=== PATIENT | female | born 1995 | race American Indian/Alaskan Native ===

== ENCOUNTER 2018-09-26 19:24 | Emergency (ER) | payer MEDICAID ==
[2018-09-26 19:34] VITALS: BP 126/79
--- NOTE | 2018-09-26 21:41 | Emergency Department Report ---
ED ENT HPI - General Chief complaint: Dental/Oral Stated complaint: MOUTH PAIN/SWELLING Time Seen by Provider: 09/26/18 21:22 Source: patient Mode of arrival: Ambulatory Limitations: No Limitations - History of Present Illness Initial comments: Pt is a 22 yo female who presents to the ED with c/o left lower tooth pain that began a couple of weeks ago. She states she has also noticed swelling on her gum around that side. She states that on August 29 she had her upper wisdom teeth removed. She says that they couldnt remove the lower at that time due to "a nerve issue." The patient denies any N/V or fever. She denies any PMHx of allergies to medications. She has not taken anything to relieve her sx. Pt has not called her dentist. - Related Data Previous Rx's Medication Instructions Recorded Last Taken Type Acetaminophen/Codeine [Tylenol 1 tab PO Q6H PRN #10 tab 09/26/18 Unknown Rx /Codeine # 3 tab] Ibuprofen [Motrin 600 MG tab] 600 mg PO Q8H PRN #20 tablet 09/26/18 Unknown Rx Penicillin Vk [Veetids TAB] 500 mg PO QID 7 Days #56 tablet 09/26/18 Unknown Rx Allergies Allergy/AdvReac Type Severity Reaction Status Date / Time No Known Allergies Allergy Unverified 06/27/15 02:04 ED Dental HPI - General Chief complaint: Dental/Oral Stated complaint: MOUTH PAIN/SWELLING Time Seen by Provider: 09/26/18 21:22 Source: patient Mode of arrival: Ambulatory Limitations: No Limitations - Related Data Previous Rx's Medication Instructions Recorded Last Taken Type Acetaminophen/Codeine [Tylenol 1 tab PO Q6H PRN #10 tab 09/26/18 Unknown Rx /Codeine # 3 tab] Ibuprofen [Motrin 600 MG tab] 600 mg PO Q8H PRN #20 tablet 09/26/18 Unknown Rx Penicillin Vk [Veetids TAB] 500 mg PO QID 7 Days #56 tablet 09/26/18 Unknown Rx Allergies Allergy/AdvReac Type Severity Reaction Status Date / Time No Known Allergies Allergy Unverified 06/27/15 02:04 ED Review of Systems ROS: Stated complaint: MOUTH PAIN/SWELLING Other details as noted in HPI Comment: All other systems reviewed and negative ED Past Medical Hx - Past Medical History Previous Medical History?: No - Surgical History Past Surgical History?: Yes Additional Surgical History: oral - Social History Smoking Status: Never Smoker Substance Use Type: None - Medications Home Medications: Home Medications Medication Instructions Recorded Confirmed Last Taken Type Acetaminophen/Codeine [Tylenol 1 tab PO Q6H PRN #10 tab 09/26/18 Unknown Rx /Codeine # 3 tab] Ibuprofen [Motrin 600 MG tab] 600 mg PO Q8H PRN #20 tablet 09/26/18 Unknown Rx Penicillin Vk [Veetids TAB] 500 mg PO QID 7 Days #56 tablet 09/26/18 Unknown Rx ED Physical Exam - General Limitations: No Limitations General appearance: alert, in no apparent distress - Head Head exam: Present: atraumatic, normocephalic - Eye Eye exam: Present: normal appearance, PERRL - ENT ENT exam: Present: normal orophraynx, other (dental cavity present on the left lower jaw with a small area of surrounding induration present on the gums, uvula is midline, no obvious facial edema) - Respiratory Respiratory exam: Present: normal lung sounds bilaterally. Absent: respiratory distress, wheezes, rales, rhonchi, stridor, chest wall tenderness, accessory muscle use, decreased breath sounds, prolonged expiratory - Cardiovascular Cardiovascular Exam: Present: regular rate, normal rhythm, normal heart sounds. Absent: systolic murmur, diastolic murmur, rubs, gallop - Neurological Exam Neurological exam: Present: alert, oriented X3 - Psychiatric Psychiatric exam: Present: normal affect, normal mood - Skin Skin exam: Present: warm, dry, intact ED Course Vital Signs 09/26/18 09/26/18 19:32 21:50 Temperature 99.2 F Pulse Rate 90 84 Respiratory 16 17 Rate Blood Pressure 126/79 O2 Sat by Pulse 99 100 Oximetry ED Medical Decision Making - Lab Data Vital Signs 09/26/18 09/26/18 19:32 21:50 Temperature 99.2 F Pulse Rate 90 84 Respiratory 16 17 Rate Blood Pressure 126/79 O2 Sat by Pulse 99 100 Oximetry - Medical Decision Making Pt is a 22 yo female who presents to the ED with c/o left lower tooth pain that began a couple of weeks ago. She states she has also noticed swelling on her gum around that side. She states that on August 29 she had her upper wisdom teeth removed. She says that they couldnt remove the lower at that time due to "a nerve issue." The patient denies any N/V or fever. She denies any PMHx of allergies to medications. She has not taken anything to relieve her sx. Pt has not called her dentist. vitals are normal. On examination pt has dental carry in the left lower jaw with small area of induration on the gum, no facial swelling, uvula is midline. Pt given abx for a dental abscess and something for pain. Advised to take medication as prescribed. Discussed with pt to please see her dentist NICHOLAS. Discussed follow up with PCP in the next 2-3 days. Return to the ED for any new or worsening symptoms. Critical care attestation.: If time is entered above; I have spent that time in minutes in the direct care of this critically ill patient, excluding procedure time. ED Disposition Clinical Impression: Infected dental carries, Dental abscess Disposition: TO HOME OR SELFCARE Is pt being admited?: No Does the pt Need Aspirin: No Condition: Stable Instructions: Dental Abscess (ED) Additional Instructions: please follow up with your dentist NICHOLAS. please take all medication as prescribed. Continue to drink plenty of fluids. Return to the emergency room for any new or worsening symptoms. Prescriptions: Ibuprofen [Motrin 600 MG tab] 600 mg PO Q8H PRN #20 tablet PRN Reason: Pain, Moderate (4-6) Acetaminophen/Codeine [Tylenol /Codeine # 3 tab] 1 tab PO Q6H PRN #10 tab PRN Reason: Pain , Severe (7-10) Penicillin Vk [Veetids TAB] 500 mg PO QID 7 Days #56 tablet Referrals: [facility] MD [facility] [Primary Care Provider] - 2-3 Days your, dentist [Other] - NICHOLAS Time of Disposition: 21:42 Print Language: SWISS
== END 2018-09-26 21:50 | disposition home or self-care (01) ==
LOC: ED 19:24
DX: K04.7 Periapical abscess without sinus (principal)
CPT/HCPCS: 99282

== ENCOUNTER 2020-06-16 14:10 | Emergency (ER) | payer MEDICAID ==
[2020-06-16 14:37] VITALS: BP 126/84
--- NOTE | 2020-06-16 14:43 | Emergency Department Report ---
- General Chief complaint: Allergic Reaction Stated complaint: ALLERGIC REACTION Time Seen by Provider: 06/16/20 14:42 Source: patient Mode of arrival: Ambulatory Limitations: No Limitations - History of Present Illness Initial comments: Patient is a 24-year-old female presents emergency room complaints of a rash to the face that began 4 to 5 days ago. She states that it feels very irritated and has been crusting. She denies anyone else with the same rash. She denies any new soaps, lotions, detergents, medications, anything new that she can think of. She denies any difficulty swallowing, difficulty breathing, tongue swelling, fever, vomiting, diarrhea, rash anywhere except for the face. She denies any medication allergies. - Related Data Previous Rx's Medication Instructions Recorded Last Taken Type Acetaminophen/Codeine [Tylenol 1 tab PO Q6H PRN #10 tab 09/26/18 Unknown Rx /Codeine # 3 tab] Ibuprofen [Motrin 600 MG tab] 600 mg PO Q8H PRN #20 tablet 09/26/18 Unknown Rx Penicillin Vk [Veetids TAB] 500 mg PO QID 7 Days #56 tablet 09/26/18 Unknown Rx Mupirocin [Bactroban 2% OINT] 1 applic TP TID #1 tube 06/16/20 Unknown Rx cephALEXin [Keflex] 500 mg PO QID 7 Days #28 cap 06/16/20 Unknown Rx Allergies Allergy/AdvReac Type Severity Reaction Status Date / Time No Known Allergies Allergy Unverified 06/27/15 02:04 Abscess Boil HPI - HPI Chief Complaint: Allergic Reaction Stated Complaint: ALLERGIC REACTION Time Seen by Provider: 06/16/20 14:42 Home Medications: Previous Rx's Medication Instructions Recorded Last Taken Type Acetaminophen/Codeine [Tylenol 1 tab PO Q6H PRN #10 tab 09/26/18 Unknown Rx /Codeine # 3 tab] Ibuprofen [Motrin 600 MG tab] 600 mg PO Q8H PRN #20 tablet 09/26/18 Unknown Rx Penicillin Vk [Veetids TAB] 500 mg PO QID 7 Days #56 tablet 09/26/18 Unknown Rx Mupirocin [Bactroban 2% OINT] 1 applic TP TID #1 tube 06/16/20 Unknown Rx cephALEXin [Keflex] 500 mg PO QID 7 Days #28 cap 06/16/20 Unknown Rx Allergies/Adverse Reactions: Allergies Allergy/AdvReac Type Severity Reaction Status Date / Time No Known Allergies Allergy Unverified 06/27/15 02:04 ED Review of Systems ROS: Stated complaint: ALLERGIC REACTION Other details as noted in HPI Comment: All other systems reviewed and negative ED Past Medical Hx - Past Medical History Previous Medical History?: No - Surgical History Past Surgical History?: No Additional Surgical History: oral - Social History Smoking Status: Never Smoker Substance Use Type: None - Medications Home Medications: Home Medications Medication Instructions Recorded Confirmed Last Taken Type Acetaminophen/Codeine [Tylenol 1 tab PO Q6H PRN #10 tab 09/26/18 Unknown Rx /Codeine # 3 tab] Ibuprofen [Motrin 600 MG tab] 600 mg PO Q8H PRN #20 tablet 09/26/18 Unknown Rx Penicillin Vk [Veetids TAB] 500 mg PO QID 7 Days #56 tablet 09/26/18 Unknown Rx Mupirocin [Bactroban 2% OINT] 1 applic TP TID #1 tube 06/16/20 Unknown Rx cephALEXin [Keflex] 500 mg PO QID 7 Days #28 cap 06/16/20 Unknown Rx ED Physical Exam - General Limitations: No Limitations General appearance: alert, in no apparent distress - Head Head exam: Present: other (there is dry skin and small papules present to the left side of the face with honey colored crusting, no blistering, no skin denuding, no necrosis) - Eye Eye exam: Present: normal appearance - ENT ENT exam: Present: mucous membranes moist - Respiratory Respiratory exam: Absent: respiratory distress, accessory muscle use - Neurological Exam Neurological exam: Present: alert, oriented X3 - Psychiatric Psychiatric exam: Present: normal affect, normal mood - Skin Skin exam: Present: warm, dry ED Course Vital Signs 06/16/20 14:36 Temperature 98.2 F Pulse Rate 82 Respiratory 16 Rate Blood Pressure 126/84 [Right] O2 Sat by Pulse 100 Oximetry ED Medical Decision Making - Medical Decision Making Patient is a 24-year-old female presents emergency room complaints of a rash to the face that began 4 to 5 days ago. She states that it feels very irritated and has been crusting. She denies anyone else with the same rash. She denies any new soaps, lotions, detergents, medications, anything new that she can think of. She denies any difficulty swallowing, difficulty breathing, tongue swelling, fever, vomiting, diarrhea, rash anywhere except for the face. She denies any medication allergies. Vitals are normal. on exam:there is dry skin and small papules present to the left side of the face with honey colored crusting, no blistering, no skin denuding, no necrosis. Examination appears most consistent with impetigo. Patient given prescription for mupirocin ointment and Keflex. Advised patient please use medication as prescribed. follow up with a primary care doctor. return to the emergency room for any new or worsening symptoms Critical care attestation.: If time is entered above; I have spent that time in minutes in the direct care of this critically ill patient, excluding procedure time. ED Disposition Clinical Impression: Impetigo Disposition: DC- TO HOME OR SELFCARE Is pt being admited?: No Does the pt Need Aspirin: No Condition: Stable Instructions: Impetigo, Adult Additional Instructions: please use medication as prescribed. follow up with a primary care doctor. return to the emergency room for any new or worsening symptoms. Prescriptions: Mupirocin [Bactroban 2% OINT] 1 applic TP TID #1 tube cephALEXin [Keflex] 500 mg PO QID 7 Days #28 cap Referrals: PRIMARY CARE, [Primary Care Provider] - 2-3 Days Time of Disposition: 14:42 Print Language: ALBANIAN
== END 2020-06-16 15:47 | disposition home or self-care (01) ==
LOC: ED 14:10
DX: L01.00 Impetigo, unspecified (principal); Z98.890 Other specified postprocedural states; Z79.899 Other long term (current) drug therapy
CPT/HCPCS: 99282